=== PATIENT | male | born 2000 | race Two or more races ===

== ENCOUNTER 2024-04-21 16:26 | Emergency (ER) | payer MEDICAID ==
[~2024-04-21] VITALS: Ht 170.2 cm; Wt 83.9 kg
[2024-04-21 16:34] VITALS: BP 123/86; PULSE 103; RESP 16; O2SAT 96
[2024-04-21] MEDS ORDERED: KETOROLAC TROMETH 60MG/2ML VIAL IM ONE (16:45)
[2024-04-21] MEDS ORDERED: HYDROcodone-ACET 10/325MG TAB PO ONE (16:45)
--- NOTE | 2024-04-21 16:48 | ED.PDOC ---
Musculoskeletal HPI Comments 24 y.o male with PMH of gout, presents to the ED for a chief complaint of total body pain that started 6 days ago. Patient reports pain is similar to previous gout flare ups, states pain usually presents on his lower extremity and travels up. Patient reports bringing these flare up concerns to PCP's attention but states poor follow up on PCP's part for treatment and management. Patient also complains of nausea and vomiting with no active episode at this time. Chief Complaint: Body Pain Time Seen by MD: 16:39 Reviewed Notes: Nurses Notes, Medications, Allergies Information Source: Patient Mode of Arrival: Wheelchair Location: Bilateral Extremity Location: Other (total body pain ) Timing: Days (6) Severity: Moderate Able to Move Extremity: No Bear Weight: Limited Pain: Severe Circumstances: Spontaneous Onset of Symptoms: Spontaneous Symptoms: Pain DVT Risk Factors: NONE History of: Gout Associated signs and symptoms: Leg pain, Other (generalized body pain ) Past Medical History PAST MEDICAL HISTORY: Gout Surgical History: Denies all surgeries Family History Family History: Reviewed,noncontributory to illness Social History Smoker: Non-Smoker Alcohol: Denies ETOH Use Drugs: Denies Drug Use Lives In: Home Constitutional: denies: chills, diaphoresis, fatigue, fever, malaise, sweats, weakness, others EENTM: denies: blurred vision, double vision, ear bleeding, ear discharge, ear drainage, ear pain, ear ringing, eye pain, eye redness, hearing loss, mouth pain, mouth swelling, nasal discharge, nose bleeding, nose congestion, nose pain, photophobia, tearing, throat pain, throat swelling, voice changes, others Respiratory: denies: cough, hemoptysis, orthopnea, SOB at rest, shortness of breath, SOB with excertion, stridor, wheezing, others Cardiovascular: denies: chest pain, dizzy spells, diaphoresis, Dyspnea on exertion, edema, irregular heart beat, left arm pain, lightheadedness, palpitations, PND, syncope, others Gastrointestinal: denies: abdomen distended, abdominal pain, blood streaked bowels, constipated, diarrhea, dysphagia, difficulty swallowing, hematemesis, melena, nausea, poor appetite, poor fluid intake, rectal bleeding, rectal pain, vomiting, others Genitourinary: denies: burning, dysuria, flank pain, frequency, hematuria, incontinence, penile discharge, penile sore, pain, testicle pain, testicle swelling, urgency, others Neurological: denies: dizziness, fainting, headache, left sided numbness, left sided weakness, numbness, paresthesia, pre-existing deficit, right sided numbnes s, right sided weakness, seizure, speech problems, tingling, tremors, weakness, others Musculoskeletal: reports: joint pain, joint swelling, muscle pain; denies: back pain, gout, muscle stiffness, neck pain, others Integumetry: denies: bruises, change in color, change in hair/nails, dryness, laceration, lesions, lumps, rash, wounds, others Allergic/Immunocompromised: denies: Difficulty Healing, Frequent Infections, Hives, Itching, others Hematologic/Lymphatic: denies: anemia, blood clots, easy bleeding, easy bruising, swollen glands, others Endocrine: denies: excessive hunger, excessive sweating, excessive thirst, excessive urination, flushing, intolerance to cold, intolerance to heat, unexplained weight gain, unexplained weight loss, others Psychiatric: denies: anxiety, bipolar disorder, depression, hopeless, panic d isorder, schizophrenia, sleepless, suicidal, others All Other Systems: Reviewed and Negative Was a procedure done? Was a procedure done?: No Differential Diagnosis EXT Differential Diagnosis: Compartment Syndrome, Sprain, Gout, Strain X-Ray, Labs, Meds, VS Vital Signs Date Time Temp Pulse Resp B/P (MAP) Pulse Ox O2 Delivery O2 Flow Rate FiO2 04/21/24 16:34 98.7 103 16 123/86 (98) 96 Time of 1ST Reevaluation: 16:43 Reevaluation 1ST: Unchanged Patient Education/Counseling: Diagnosis, Treatment, Prognosis Family Education/Counseling: No Family Present Critical Care Note Critical Care Time?: No Stability Stability form required: No I personally scribed for GENE CARL PAC ([email or web address]) on 04/21/24 at 16:48. Electronically submitted by Brittani Walker ([facility]). I personally scribed for GENE CARL PAC ([email or web address]) on 04/21/24 at 16:49. Electronically submitted by Brittani Walker ([facility]). GENE CARL PAC Apr 21, 2024 16:48
[2024-04-21 17:25] LABS: Basophils # (auto) 0.1 10 ^3/uL (0-0.2); Basophils % (auto) 0.7 % (0.0-2.0); Eosinophils # (auto) 0 10 ^3/uL (0-0.8); Eosinophils % (auto) 0.4 % (0.0-7.0); Hematocrit 42.9 % (41.0-53.0); Hemoglobin 14.6 g/dL (13.5-17.5); Lymphocytes # (auto) 1.7 10 ^3/uL (0.4-5.4); Lymphocytes % (auto) 16.8 % (10.0-50.0); Mean Corpuscular Hemoglobin 28.7 pg (28.0-32.0); Mean Corpuscular Hgb Conc. 34.2 g/dL (32.0-36.0); Mean Corpuscular Volume 83.9 fL (80.0-100.0); Monocytes # (auto) 0.7 10 ^3/uL (0-1.3); Monocytes % (auto) 6.6 % (0.0-12.0); Neutrophils # (auto) 7.8 10 ^3/uL (1.6-8.6); Neutrophils % (auto) 75.5 % (37.0-80.0); Platelet Count (auto) 418 10^3/uL (140-450); Red Blood Cells 5.11 10^6/uL (4.5-5.90); Red Cell Distribution Width 14.4 % (11.8-14.3); White Blood Cell 10.3 10^3/uL (4.4-10.8)
[2024-04-21 17:33] LABS: Chloride 104 mmol/L (98-107); Potassium 3.7 mmol/L (3.5-5.1); Sodium 139 mmol/L (136-145)
[2024-04-21 17:34] LABS: Anion Gap 9 (5-15); Carbon Dioxide 26 mmol/L (20-31)
[2024-04-21 17:35] LABS: Calcium 9.6 mg/dL (8.7-10.4)
[2024-04-21 17:39] LABS: Glucose 89 mg/dL (74-106); Uric Acid 8.3 mg/dL (3.7-9.2)
[2024-04-21 17:40] LABS: Lipase 30 U/L (12-53)
[2024-04-21 17:54] LABS: Blood Urea Nitrogen 7 mg/dL (9-23)
[2024-04-21] MEDS ORDERED: COLCHICINE 0.6 MG CAP PO ONE (18:45)
== END 2024-04-21 21:04 | disposition left against medical advice (07) ==
LOC: ER 16:26
DX: M79.662 Pain in left lower leg (principal); M10.9 Gout, unspecified
CPT/HCPCS: 36415; 80048; 83690; 84550; 85025; J1885